=== PATIENT | female | born 1945 | race Caucasian/White ===

== ENCOUNTER 2025-03-01 07:25 | Emergency (ER) | payer MEDICARE, OTHER ==
[~2025-03-01] VITALS: Ht 165.1 cm; Wt 65.0 kg
[~2025-03-01 07:25] MED LIST: AMLO-257 PO; ASPI81TA39 PO; CARV3 PO; CLARITIN; CLOP75TA83 PO; HYDR25TA2 PO; LANTUS; LORA10TA7 PO; LOSA-381 PO; METF-81 PO; RANI-679 PO; SIMV-259 PO; VENTOLIN; [UNRECOGNIZED DRUG - CODE]
[2025-03-01 08:06] VITALS: TEMP 98.2
[2025-03-01] MEDS: LIDOCAINE 1% 10 ML VIAL ID ONE (08:07)
[2025-03-01] MEDS: BACITRACIN 0.9 GM PACKET OINTMENT TP ONE (08:10)
[2025-03-01] MEDS: SODIUM CHLORIDE 0.9% 500 ML IRRIG SOLUTION BOTTLE IRRIG ONE (08:13)
[2025-03-01] MEDS: PERTUSS(ACELL),DIPH,TET/PF 0.5 ML SYRINGE [ADULT] IM. ONE (08:16)
[2025-03-01 08:36] LABS: GLUCOMETER DEV NAME(LOC) ER.7; GLUCOSE,POINT OF CARE 102 MG/DL (70-110)
[2025-03-01] MEDS ORDERED: CEPH-558 PO (09:23)
[2025-03-01 09:44] VITALS: BP 125/55; PULSE 70; RESP 15; O2SAT 97
[2025-03-01] MEDS ORDERED: ACET-66 PO (09:45)
== END 2025-03-01 09:45 | disposition home or self-care (01) ==
LOC: EMS 07:28
DX: S61.411A Laceration without foreign body of right hand, initial encounter (principal); E11.9 Type 2 diabetes mellitus without complications; I10 Essential (primary) hypertension; J45.909 Unspecified asthma, uncomplicated; Z98.51 Tubal ligation status; Z90.49 Acquired absence of other specified parts of digestive tract; Z79.02 Long term (current) use of antithrombotics/antiplatelets; Z79.4 Long term (current) use of insulin; Z79.82 Long term (current) use of aspirin; Z79.899 Other long term (current) drug therapy; W19.XXXA Unspecified fall, initial encounter; Y93.89 Activity, other specified; Y92.89 Other specified places as the place of occurrence of the external cause; Y99.8 Other external cause status
CPT/HCPCS: 99283; 82962; 90715; 90471; 12001; J3490